=== PATIENT | male | born 1975 | race Caucasian/White ===

== ENCOUNTER 2017-09-02 15:30 | Emergency (ER) | payer OTHER ==
[2017-09-02 15:52] VITALS: BP 120/87
--- NOTE | 2017-09-02 16:15 | EDM.PDOC ---
ED HPI GENERAL MEDICAL PROBLEM - General Chief Complaint: Chest Pain Stated Complaint: [facility] Time Seen by Provider: 09/02/17 15:39 Source of Information: Reports: Patient History Limitations: Reports: No Limitations - History of Present Illness INITIAL COMMENTS - FREE TEXT/NARRATIVE: 42 y/o M presents with chest pain after notification that his significant other has a brain mass. He states he was very upset when he heard the news. He has known hx of a-fib, currently on no meds. States he had substernal chest pain after hearing the news that went to his neck and right arm. He sought attention with [facility] and was transported here. Ambulance paramedics gave him aspirin. Pain is much better now. Denies SOB at this time. Denies CP at this time. Is feeling very anxious and upset about the recent news and wants to leave. He doesn't currently have a doctor. Treatments EXPORT AGENT: Reports: Aspirin, EKG, Nitroglycerin epigastric Pain Score (Numeric/FACES): 2 - Related Data Allergies Allergy/AdvReac Type Severity Reaction Status Date / Time No Known Allergies Allergy Verified 09/02/17 15:44 Home Meds: Home Meds . [No Known Home Meds] 09/02/17 [History] Past Medical History Cardiovascular History: Reports: Afib, Arrhythmia Gastrointestinal History: Reports: Gastritis, GERD Psychiatric History: Reports: Anxiety Endocrine/Metabolic History: Reports: Other (See Below) Social & Family History - Family History Family Medical History: Noncontributory - Tobacco Use Smoking Status *Q: Current Every Day Smoker Years of Tobacco use: 30 Packs/Tins Daily: 1 - Caffeine Use Caffeine Use: Reports: Soda - Recreational Drug Use Recreational Drug Use: No ED ROS GENERAL - Review of Systems Review Of Systems: See Below Constitutional: Denies: Fever HEENT: Reports: No Symptoms Respiratory: Denies: Shortness of Breath Cardiovascular: Reports: Chest Pain Endocrine: Reports: No Symptoms GI/Abdominal: Denies: Abdominal Pain : Reports: No Symptoms Musculoskeletal: Reports: Arm Pain Neurological: Reports: No Symptoms Psychiatric: Reports: No Symptoms Hematologic/Lymphatic: Reports: No Symptoms Immunologic: Reports: No Symptoms ED EXAM, GENERAL - Physical Exam Exam: See Below Exam Limited By: No Limitations General Appearance: Alert, WD/WN, No Apparent Distress Eye Exam: Bilateral Eye: EOMI, PERRL Ears: Normal External Exam Nose: Normal Inspection Throat/Mouth: Normal Inspection, Normal Oropharynx, Normal Voice, No Airway Compromise Head: Atraumatic, Normocephalic Neck: Normal Inspection, Supple Respiratory/Chest: No Respiratory Distress, Lungs Clear, Normal Breath Sounds, No Accessory Muscle Use, Chest Non-Tender Cardiovascular: No Edema, No Murmur, Tachycardia, Irregularly Irregular Peripheral Pulses: 2+: Radial (R) GI/Abdominal: Soft, Non-Tender, No Distention Back Exam: Normal Inspection Extremities: Normal Inspection Neurological: Alert, Oriented, Normal Cognition, No Motor/Sensory Deficits Psychiatric: Normal Affect, Normal Mood Skin Exam: Warm, Dry, Intact, Pallor Course - Vital Signs Last Recorded V/S: Last Vital Signs Temp 36.8 C 09/02/17 15:30 Pulse 98 09/02/17 15:52 Resp 18 09/02/17 15:52 BP 120/87 09/02/17 15:52 Pulse Ox 94 L 09/02/17 15:52 - Orders/Labs/Meds Orders: Active Orders 24 hr Category Date Time Status EKG 12 Lead [EKG Documentation Completion] [RC] STAT Care 09/02/17 15:47 Active Labs: Laboratory Tests 09/02/17 09/02/17 Range/Units 16:00 16:00 WBC 12.60 H (4.23-9.07) K/mm3 RBC 5.08 (4.63-6.08) M/mm3 Hgb 15.6 (13.7-17.5) gm/L Hct 43.5 (40.1-51.0) % MCV 85.6 (79.0-92.2) fl MCH 30.7 (25.7-32.2) pg MCHC 35.9 H (32.2-35.5) g/dl RDW Std Deviation 40.1 (35.1-43.9) fL Plt Count 214 (163-337) K/mm3 MPV 11.4 (9.4-12.3) fl Neut % (Auto) 68.8 H (34.0-67.9) % Lymph % (Auto) 21.6 L (21.8-53.1) % Vigo % (Auto) 6.9 (5.3-12.2) % Eos % (Auto) 1.9 (0.8-7.0) Baso % (Auto) 0.6 (0.1-1.2) % Neut # (Auto) 8.67 H (1.78-5.38) K/mm3 Lymph # (Auto) 2.72 (1.32-3.57) K/mm3 Vigo # (Auto) 0.87 H (0.30-0.82) K/mm3 Eos # (Auto) 0.24 (0.04-0.54) K/mm3 Baso # (Auto) 0.08 (0.01-0.08) K/mm3 Sodium 139 (136-145) mEq/L Potassium 4.2 (3.5-5.1) mEq/L Chloride 104 (98-107) mEq/L Carbon Dioxide 24 (21-32) mEq/L Anion Gap 15.2 H (5-15) BUN 9 (7-18) mg/dL Creatinine 1.0 (0.7-1.3) mg/dL Est Cr Clr Drug Dosing 100.38 mL/min Estimated GFR (MDRD) > 60 (>60) mL/min BUN/Creatinine Ratio 9.0 L (14-18) Glucose 113 H (74-106) mg/dL Calcium 8.7 (8.5-10.1) mg/dL Total Bilirubin 0.3 (0.2-1.0) mg/dL AST 13 L (15-37) U/L ALT 25 (16-63) U/L Alkaline Phosphatase 84 (46-116) U/L Troponin I 0.048 (0.00-0.056) ng/mL Total Protein 7.1 (6.4-8.2) g/dl Albumin 4.0 (3.4-5.0) g/dl Globulin 3.1 gm/dL Albumin/Globulin Ratio 1.3 (1-2) - Re-Assessments/Exams Free Text/Narrative Re-Assessment/Exam: 09/02/17 16:19 EKG shows a-fib, no significant ST/T abnormality. Labs show detectable but negative troponin. CBC/chem normal. I advised him to stay for monitoring and repeat cardiac enzyme testing. He refused because he is anxious to get out of here so he can be with his significant other in [place]. Discussed risk of possible not yet detected [place]. He still refuses to stay. I can understand why he wants to leave given the circumstances. He is chest pain free. I will discharge him. Advised him to return to the closest ED if his chest pain returns. 09/02/17 17:53 Departure - Departure Time of Disposition: 16:33 Disposition: Home, Self-Care 01 Clinical Impression: Atrial fibrillation Qualifiers: Atrial fibrillation type: unspecified Qualified Code(s): I48.91 - Unspecified atrial fibrillation Instructions: Atrial Fibrillation, [id number] Forms: ED Department Discharge Additional Instructions: 1. Follow up with a primary care provider. Call [phone] to schedule with a provider here if you'd like. 2. Return to the closest ED if you have worsening chest pain, shortness of breath, or other concerning symptoms. - My Orders Last 24 Hours: My Active Orders 09/02/17 15:47 EKG 12 Lead [EKG Documentation Completion] [RC] STAT - Assessment/Plan Last 24 Hours: My Active Orders 09/02/17 15:47 EKG 12 Lead [EKG Documentation Completion] [RC] STAT
== END 2017-09-02 16:45 | disposition home or self-care (01) ==
LOC: JD.ED 15:30
DX: I48.91 Unspecified atrial fibrillation (principal); K21.9 Gastro-esophageal reflux disease without esophagitis; G93.9 Disorder of brain, unspecified; F17.210 Nicotine dependence, cigarettes, uncomplicated
CPT/HCPCS: 36415; 80053; 84484; 85025; 93005; 93010; 99284; 99285-25

== ENCOUNTER 2020-06-07 18:34 | Emergency (ER) | payer OTHER ==
[2020-06-07 18:47] VITALS: BP 152/96; PULSE 70
[2020-06-07] MEDS ORDERED: Ibuprofen 600 MG Tab PO ONE (19:25)
[2020-06-07] MEDS ORDERED: Orphenadrine 100 MG Tab.ER PO STA (19:25)
[2020-06-07] MEDS ORDERED: Famotidine 20 MG Tab PO STA (19:27)
--- NOTE | 2020-06-07 19:34 | EDM.PDOC ---
ED HPI GENERAL MEDICAL PROBLEM - General Chief Complaint: Back Pain or Injury Stated Complaint: extreme back pain wont go away Time Seen by Provider: 06/07/20 19:01 Source of Information: Reports: Patient, Family (Daughter) History Limitations: Reports: No Limitations - History of Present Illness INITIAL COMMENTS - FREE TEXT/NARRATIVE: Mr. Chavarria is a very pleasant 44-year-old gentleman who now presents to the ED for evaluation of his lower back. He states that his girlfriend has stage IV brain cancer and struck a pole, therefore was brought to the ED for evaluation, and he figured that since he is already here, he should have his back checked out. He states that he has been suffering from [id number] lower left back pain for the past 2 months. The pain is limited to his lower back, and does not radiate down to either buttock or lower extremity. He states that he has seen a chiropractor approximately 8 times over the past month, which provide some only temporary relief. In addition, he has been taking aspirin and Tylenol during the day, and Tylenol PM at night. He has not taken any ibuprofen or naproxen. He states that he purchased a back brace yesterday and wore it today, which provided some relief, although his back is hurting again now that it is off. 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 The patient acknowledges that he has had some lower back pain prior to 2 months ago, as well. He has not seen his PCP about this issue. Here in the ED, the patient's initial BP is found to be mildly elevated at 152/96, otherwise, he is hemodynamically stable, afebrile, saturating 97% on room air. Other than his lower back pain, the patient denies having a recent fever, chills, sore throat, ear pain, nasal or sinus congestion, cough, dyspnea, chest pain, palpitations, nausea, vomiting, constipation, diarrhea, abdominal pain, u rinary symptoms, recent weight gain or weight loss, recent bloody bowel movements or black bowel movements, recent joint aches, headaches, or rashes. The patient's PC is Dr. Oniel Rueda. He does not recall the name of his [facility]. He has not received an influenza vaccine this season, and declined an offer to get one here in the ED. Lower Back Pain Score (Numeric/FACES): 8 - Related Data Allergies Allergy/AdvReac Type Severity Reaction Status Date / Time No Known Allergies Allergy Verified 06/07/20 18:47 Home Meds: Home Meds Apixaban [Eliquis] 5 mg PO DAILY 06/07/20 [History] Diltiazem [Dilacor XR] 180 mg PO DAILY 06/07/20 [History] Orphenadrine [Norflex] 1 tab PO Q12H PRN #14 tab.er 06/07/20 [Rx] Past Medical History Cardiovascular History: Reports: Afib (paroxysmal), Other (See Below) (Biatrial enlargement on echo 11/13/2019) Gastrointestinal History: Reports: Gastritis (untreated), GERD (untreated) Psychiatric History: Reports: Anxiety (untreated) Endocrine/Metabolic History: Reports: Obesity/BMI 30+ Social & Family History - Tobacco Use Tobacco Use Status *Q: Current Every Day Tobacco User Years of Tobacco use: 31 Packs/Tins Daily: 1 Packs/Tins Daily Comment: Down from 2 ppd Tobacco Use Comment: Started smoking 13 yrs old - Caffeine Use Caffeine Use: Reports: None - Alcohol Use Alcohol Use History: No - Recreational Drug Use Recreational Drug Use: No - Living Situation & Occupation Living situation: Reports: , with Significant Other (Girlfriend), with Family (Daughter) 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 ED EXAM,LOWER BACK PAIN/INJURY - Physical Exam Exam: See Below Exam Limited By: No Limitations General Appearance: Alert, WD/WN, No Apparent Distress Eye Exam: Bilateral Eye: EOMI, Normal Inspection Ears: Normal External Exam, Hearing Grossly Normal Nose: Normal Inspection Throat/Mouth: Normal Inspection, Normal Lips, Normal Voice, No Airway Compromise Head: Atraumatic, Normocephalic Neck: Normal Inspection, Full Range of Motion Respiratory/Chest: No Respiratory Distress, Lungs Clear, Normal Breath Sounds, No Accessory Muscle Use Cardiovascular: Normal Peripheral Pulses, Regular Rate, Rhythm, No Edema, No Gallop, No JVD, No Murmur, No Rub GI/Abdominal: Normal Bowel Sounds, Soft, Non-Tender, No Organomegaly, No Distention, No Abnormal Bruit, No Mass Back Exam: Normal Inspection (no visible abnormality to the lower back, such as swelling, erythema, ecchymosis, or abrasion), Full Range of Motion, Other (The patient indicates the site of his pain is over his left SI joint. He reports improvement of his pain when this area is palpated. His back is otherwise nontender. The patient is able to flex his spine to about 45 degrees, and extend his spine to about 20 degrees. He is able to tilt his spine,) Extremities: Normal Inspection, Normal Range of Motion, No Pedal Edema, Normal Capillary Refill Neurological: Alert, Normal Dorsiflexion, Normal Plantar Flexion, No Motor/Sensory Deficits, Oriented x 3 Psychiatric: Normal Affect Skin Exam: Warm, Dry, Intact, Normal Color, No Rash Course - Vital Signs Last Recorded V/S: Last Vital Signs Temp 36.1 C 06/07/20 18:45 Pulse 70 06/07/20 18:45 Resp 16 06/07/20 18:45 BP 152/96 H 06/07/20 18:45 Pulse Ox 97 06/07/20 18:45 - Orders/Labs/Meds Meds: Medications Discontinued Medications Generic Name Dose Route Start Last Admin Trade Name Freq PRN Reason Stop Dose Admin Famotidine 40 mg 06/07/20 19:27 06/07/20 19:36 Famotidine 20 Mg Tab PO 06/07/20 19:28 40 mg ONETIME STA Administration Ibuprofen 600 mg 06/07/20 19:25 06/07/20 19:36 Ibuprofen 600 Mg Tab PO 06/07/20 19:26 600 mg ONETIME ONE Administration Orphenadrine Citrate 100 mg 06/07/20 19:25 06/07/20 19:36 Orphenadrine 100 Mg Tab.Er PO 06/07/20 19:26 100 mg ONETIME STA Administration - Re-Assessments/Exams Free Text/Narrative Re-Assessment/Exam: 06/07/20 19:26 As above, the patient has been suffering from waxing and waning lower left back pain for about 2 months, which has persisted despite seeing a chiropractor 8 times over the past month, and his taking aspirin and Tylenol PM. His examination is consistent with a musculoskeletal strain, and is not consistent with a herniated intervertebral disc. I am therefore recommending that we start him on Norflex and oral ibuprofen, and, because he has a history of untreated gastritis, something to protect his stomach, such as famotidine. The patient is agreeable. Departure - Departure Time of Disposition: 19:28 Disposition: Home, Self-Care 01 Condition: Good Clinical Impression: Strain of muscle, fascia and tendon of lower back, initial encounter - Discharge Information *PRESCRIPTION DRUG MONITORING PROGRAM REVIEWED*: Not Applicable *COPY OF PRESCRIPTION DRUG MONITORING REPORT IN PATIENT MADHU: Not Applicable Prescriptions: Orphenadrine [Norflex] 1 tab PO Q12H PRN #14 tab.er PRN Reason: Muscle Spasm Instructions: Muscle Strain, [id number] Referrals: Oniel Rueda MD [Primary Care Provider] - Forms: ED Department Discharge Additional Instructions: You were seen in the emergency room for lower left back pain for 2 months despite taking aspirin and Tylenol and seeing the chiropractor 8 times over the past month. Based on your history and physical examination, your lower back pain is due to a musculoskeletal strain. You have been started on the muscle relaxant Norflex, and a prescription for Norflex has been sent to the [facility], located in the [facility] grocery store. Take 1 tablet of Norflex every 12 hours, starting tomorrow morning, 06/08/2020, as prescribed. As discussed, Norflex works well with ibuprofen. We recommend that you take 3 tablets (600 mg) of [id number] ibuprofen every 8 hours, with food, as needed for discomfort. Because ibuprofen can be hard on your stomach, we recommend that you also take 1 tablet of [id number] famotidine twice a day. Generic famotidine is just as good as brand-name Pepcid. Please follow-up with your PCP, Dr. Oniel Rueda, at the next available a ppointment. If the Norflex is working well for you, he can prescribe you additional, whereas if it is not, he may be able to recommend other evaluations or treatments. If any other problems, please do not hesitate to return to the ER. Sepsis Event Note (ED) - Evaluation Sepsis Screening Result: No Definite Risk - Focused Exam Vital Signs: Vital Signs Temp Pulse Resp BP Pulse Ox 06/07/20 18:45 36.1 C 70 16 152/96 H 97
== END 2020-06-07 19:40 | disposition home or self-care (01) ==
LOC: JD.ED 18:34
DX: S39.012A Strain of muscle, fascia and tendon of lower back, initial encounter (principal); I48.0 Paroxysmal atrial fibrillation; E66.9 Obesity, unspecified; Z68.30 Body mass index [BMI] 30.0-30.9, adult; Z72.0 Tobacco use; Z79.01 Long term (current) use of anticoagulants; Z79.899 Other long term (current) drug therapy; W22.8XXA Striking against or struck by other objects, initial encounter
CPT/HCPCS: 99283; A9270